=== PATIENT | male | born 1950 | race Caucasian/White ===

== ENCOUNTER → 2018-05-22 | Outpatient (CLI) | payer MEDICARE, OTHER ==
[~2018-05-22] MED LIST: ASPIRIN81 M2 PO; CELEXA20 MG PO; COUMADIN 1MG TAB1 M1 PO; CRESTOR10 MG PO; DEXAMETHASONE 44 M1 PO; GLUCOTROL5 MG PO; HUMALOG100 UNIT/1 SUBQ; HYDROCODON-ACE1 EAC7 PO; KEPPRA 500 MG500 M1 PO; LANOXIN 0.250.25 M1 PO; LANTUS100 UNIT/M SUBQ; NEURONTIN300 MG PO; PATANOL5 ML OPHTHALMIC; PROPAFENONE 22225 M1 PO; VENTOLIN HFA 1818 GM INH; VICTOZA0.6 MG/0.1 SUBQ; ZESTORETIC PO; ZYRTEC10 MG PO
== END ==
LOC: M.RAD 05-15 15:31 → M.ULTRA 09:54
DX: K76.0 Fatty (change of) liver, not elsewhere classified (principal); K59.00 Constipation, unspecified; R16.0 Hepatomegaly, not elsewhere classified

== ENCOUNTER → 2018-11-21 | Outpatient (CLI) | payer MEDICARE, OTHER ==
--- NOTE | 2018-11-26 10:34 | PF ---
[address] [address] PULMONARY FUNCTION REPORT Name: OMIDKikaCHRIS ARSLAN Room: [facility].#: [id number] Admission: 11/21/18 Attend Phys: Edward Collins MD Discharge: Date of : 48 Report #: [id number] THIS REPORT FOR: //name// CC: Edward Dorado REFERRING PHYSICIAN: Dr. Edward Carmichael. TYPE OF STUDY: Pulmonary function test. SPIROMETRY: FEV1/FVC was 75% predicted. FEV1 2.85 at 98% predicted, FVC 3.78 liter at 96% predicted. Total lung capacity was 4.86 liter at 75% predicted. DLCO 93% predicted. IMPRESSION: This pulmonary function test did not show obstructive pulmonary defect. There is possibly mild restrictive defect with a total lung capacity 75% and normal DLCO. This could be explained by elevated BMI. <ELECTRONICALLY SIGNED> By: Loretta Barnes MD 11/26/18 [id number] Barnes MD /nt
== END ==
LOC: M.PUL 12:49
DX: I70.0 Atherosclerosis of aorta (principal); R06.00 Dyspnea, unspecified

== ENCOUNTER → 2019-08-05 | Outpatient (CLI) | payer MEDICARE, OTHER | LOC: M.WC 07:41 | DX: E11.622 Type 2 diabetes mellitus with other skin ulcer (principal); L98.498 Non-pressure chronic ulcer of skin of other sites with other specified severity; L02.211 Cutaneous abscess of abdominal wall; E66.01 Morbid (severe) obesity due to excess calories; G47.30 Sleep apnea, unspecified; I48.91 Unspecified atrial fibrillation; J42 Unspecified chronic bronchitis; F41.9 Anxiety disorder, unspecified; Z85.46 Personal history of malignant neoplasm of prostate; Z68.41 Body mass index [BMI] 40.0-44.9, adult ==

== ENCOUNTER → 2019-08-12 | Outpatient (CLI) | payer MEDICARE, OTHER | LOC: M.WC 04:36 | DX: E11.622 Type 2 diabetes mellitus with other skin ulcer (principal); L98.498 Non-pressure chronic ulcer of skin of other sites with other specified severity; L02.211 Cutaneous abscess of abdominal wall; E66.01 Morbid (severe) obesity due to excess calories; G47.30 Sleep apnea, unspecified; I48.91 Unspecified atrial fibrillation; J42 Unspecified chronic bronchitis; F41.9 Anxiety disorder, unspecified; Z68.41 Body mass index [BMI] 40.0-44.9, adult; Z85.46 Personal history of malignant neoplasm of prostate ==

== ENCOUNTER → 2020-02-09 | Outpatient (CLI) | payer MEDICARE, OTHER | LOC: M.LAB 09:38 | PROVIDERS: ATTEND Anesthesiology | DX: Z01.812 Encounter for preprocedural laboratory examination (principal); Z20.828 Contact with and (suspected) exposure to other viral communicable diseases; R19.5 Other fecal abnormalities; E87.6 Hypokalemia; Z80.0 Family history of malignant neoplasm of digestive organs ==